=== PATIENT | female | born 1995 | race African-American/Black ===

== ENCOUNTER 2022-04-21 12:14 | Emergency (ER) | payer OTHER ==
[~2022-04-21] VITALS: Ht 162.6 cm; Wt 59.0 kg
[2022-04-21 12:39] VITALS: BP 118/62
[2022-04-21 13:01] VITALS: BP 109/56
[2022-04-21] MEDS ORDERED: SILVADENE1 % EX (13:12)
[2022-04-21 13:16] VITALS: BP 109/56
== END 2022-04-21 13:20 | disposition home or self-care (01) | DRG 935 ==
LOC: ED 12:14
PROC: 2W24X4Z Dressing of Chest Wall using Bandage (ICD-10-PCS; principal; 2022-04-21)
DX: T21.21XA Burn of second degree of chest wall, initial encounter (principal); T31.0 Burns involving less than 10% of body surface; X12.XXXA Contact with other hot fluids, initial encounter; Y92.89 Other specified places as the place of occurrence of the external cause; Y99.0 Civilian activity done for income or pay